=== PATIENT | male | born 1960 | race American Indian/Alaskan Native ===

== ENCOUNTER 2019-02-01 05:45 | Day surgery (SDC) | payer BC ==
--- NOTE | 2019-01-19 10:46 | NUR ---
PATIENT HERE TODAY FOR PREADMIT APPOINTMENT. HE IS ACCOMPANIED BY HIS LIFE PARTNER AMALIA. HE IS SCHEDULED TO HAVE A LEFT TOTAL HIP ARTHROPLASTY DONE ON 02/01/19. HE WILL BE ATTENDING A PHYSICAL THERAPY APPOINTMENT ON 01/22/19 AND WOULD LIKE PHYSICAL THERAPY SET UP WITH [facility]. HE HAS 5 STEPS INTO THE HOME AND 3 STEPS INSIDE THE HOME. THEY HAVE A WALK IN SHOWER WITH HAND HELD SHOWER HEAD. THERE IS A SHOWER BENCH AT THIS TIME AND THEY WILL LOOK INTO A WALKER. AMALIA WILL BE HERE TO TRANSPORT THE PATIENT HOME AND TO APPOINTMENTS NEEDED. THIS INFORMATION WILL BE SENT TO DR SMITH OFFICE AND CASE MANAGEMENT FOR FURTHER FOLLOW UP.
[~2019-02-01] VITALS: Ht 157.5 cm; Wt 74.8 kg
[~2019-02-01 05:45] MED LIST: ALLOPURINOL100 MG PO; DICLOFENAC SODI75 MG PO; LIPITOR40 MG PO; LISINOPRIL40 MG PO
--- NOTE | 2019-02-01 09:16 | NUR ---
02/01/19 0916 [address] SN 0902- PT ARRIVES TO PACU. PT IS AWAKE AND ABLE TO ANSWER QUESTIONS. PT VERBALIZES NO PAIN, NAUSEA, OR DIZZINESS. PT IS ON 6 LITERS VIA MASK AND OXYGEN SAT IS HIGH 90'S. RESPIRATIONS ARE EVEN AND NON LABORED. PT HAS ON-Q PUMP TO LEFT HIP GOING AT 2 MLS PER HOUR WITH THE CLAMP REMOVED. SULEIMAN DRESSING IN PLACE WITH GREEN LIGHT FLASHING. 0907- OXYGEN REMOVES. OXYGEN SATS MID TO HIGH 90'S ON ROOM AIR. PT REPORTS NO PAIN, NAUSEA, OR DIZZINESS. REPIRATIONS EVEN AND NON LABORED. 0913- PT SIPPING ON ICE WATER, TOLERATING WELL. PT INTERMITTENTLY COUGHING AND DEEP BREATHING.
--- NOTE | 2019-02-01 10:10 | NUR ---
PT ARRIVED FROM PACU VIA BED. PT AWAKE, ALERT AND ORIENTED. DENIES PAIN, NAUSEA, OR OTHER CONCERNS. SATTING 95% ON RA. VS OBTAINED. PT REPORTS SENSATION ALL THE WAY TO TOES, GOOD MOVEMENT OF BILATERAL EXTREMITIES, GOOD PULSES AND CAP REFILL 3 SEC, PINK AND WARM. SULEIMAN DRESSING TO LEFT HIP, FLASHING GREEN, NO BLEEDING OR DRAINAGE NOTED. CRYO CUFF IN PLACE. BILATERAL TEDS, SCD'S, AND HEEL PROTECTORS ON. LEFT FA IV FLUSHES EASILY. PT TAKING SIPS OF WATER, JASMYNE WELL. CLEAR LIQUIDS ORDERED. CALL LIGHT WITHIN REACH.
--- NOTE | 2019-02-01 11:20 | NUR ---
PT LYING IN BED WATCHING TV. IV SL. CONT TO SAT 95% ON RA. EDUCATED ON USE OF I.S. PT REPORTING 3/10 PAIN IN LEFT GROIN, REFUSED PAIN MEDICATION AT THIS TIME. DRESSING CDI. CALL LIGHT WITHIN REACH.
--- NOTE | 2019-02-01 12:21 | NUR ---
PT HAD MOST OF CLEAR LIQUID TRAY, JASMYNE WELL, DENIES NAUSEA. ORDERED LUNCH. REPORTS LEFT GROIN "DULL ACHE" UNCHANGED FROM PREVIOUS ASSESSMENT. DRESSING CDI. CALL LIGHT WITHIN REACH.
--- NOTE | 2019-02-01 12:58 | OR ---
[facility] [address] [place], [place] [address] Signed DATE OF OPERATION: 02/01/2019 SURGEON: Ponce Small MD PREOPERATIVE DIAGNOSIS: Degenerative joint disease, left hip. POSTOPERATIVE DIAGNOSIS: Degenerative joint disease, left hip. PROCEDURE PERFORMED: Left total hip arthroplasty. SUPERVISOR CRACK OFF: Christina Rodriguez PA-C. Christina was present and critical for all portions of the procedure. ANESTHESIA: Spinal. BLOOD LOSS: 150 mL. IMPLANTS: Kalee Accolate 2 size 5 with a 56 mm cup, +0 head. BRIEF HISTORY: Landen is a 58-year-old gentleman with progressive worsening of his arthritis in both hips. The left was worse than the right. He failed nonoperative treatment and wished to proceed with operative. Risks, benefits, and alternatives of surgery were discussed with him at length. He understands and wished to proceed. DESCRIPTION OF PROCEDURE: Once consent was obtained, he was taken to the operating room. After adequate anesthesia, he was placed supine on the operating table. All downside pressure points were well padded. Both legs were prepped from the toes to the umbilicus. He was then draped in a standard fashion. The anterolateral Mon-Ness incision was then marked out from the anterior aspect of the greater trochanter to spot 2 cm below, more posterior to the ASIS. This was about 8-9 cm long. The skin was incised longitudinally Electronically Signed By: PONCE SMALL MD 02/01/19 1258 PATIENT NAME: LANDEN ISIDRO OPERATIVE REPORT DATE OF : 64 REPORT #: [id number] PHYSICIAN: PONCE SMALL MD PCP: SHAILA MARTINEZ REPORT IS CONFIDENTIAL AND NOT TO BE RELEASED WITHOUT AUTHORIZATION [facility] [address] [place], [place] [address] Signed and carried through the subcutaneous tissue. The fascia was then identified and skin flaps were developed. The interval between the TFL and the gluteus medius was then incised longitudinally. The intermuscular interval was then developed using blunt dissection with fingers. Two retractors were then placed around the femoral neck, one inferior and one superiorly. Dissection was then taken anteriorly underneath the attachment of the rectus. The rectus was partially elevated. The capsule was then split in a H-fashion and elevated anteriorly and posteriorly. The calcified acetabular rim was removed. Two femoral neck cuts were made, one neck cut and one fingerbreadth above the lesser trochanter. This was done after releasing the inferior and the inferior posterior capsule. The 2nd was then made 1 cm above this. The intervening napkin ring was removed. The corkscrew was then placed in the femoral head and the femoral head was removed with ease. The periacetabular soft tissue was removed. The acetabulum was reamed up to a 55 and a 56 cup was placed. The cup was quite stable at the end of the procedure and the standard offset liner was impacted in position. Attention was then turned to the proximal femur. The superior releases were performed down to the piriformis posteriorly. This allowed the femur to be accessed quite easily. The femur was then opened using cookie cutter followed by the small awl and then sequentially broached up to a 5. The 5 was left in position. Radiographs showed the 5 to be in good size and good position. The acetabulum was in excellent position. The trial was removed and the final stem was impacted until it was well-seated, same level as the broach. A +0 head was then placed and the hip was reduced. Leg lengths were found to be equal. He had 110 degrees of flexion with 30 and 40 of internal and external rotation. The wound was copiously with antibiotic solution. An On-Q pain pump was placed intracapsular and it was closed using #1 StrataFix and #0 StrataFix and Dermabond mesh for the skin. A SULEIMAN dressing was placed and he was awakened and taken to the recovery room in satisfactory condition. All sponge, needle, and instrument counts were correct. Ponce Small MD [id number]/[id number] /[id number] Copies: Electronically Signed By: PONCE SMALL MD 02/01/19 1258 PATIENT NAME: LANDEN ISIDRO OPERATIVE REPORT DATE OF : 64 REPORT #: [id number] PHYSICIAN: PONCE SMALL MD PCP: SHAILA MARTINEZ REPORT IS CONFIDENTIAL AND NOT TO BE RELEASED WITHOUT AUTHORIZATION [facility] [address] [place] [id number] Signed ~ Electronically Signed By: PONCE SMALL MD 02/01/19 1258 PATIENT NAME: LANDEN ISIDRO OPERATIVE REPORT DATE OF : 64 REPORT #: [id number] PHYSICIAN: PONCE SAMLL MD PCP: SHAILA MARTINEZ REPORT IS CONFIDENTIAL AND NOT TO BE RELEASED WITHOUT AUTHORIZATION
--- NOTE | 2019-02-01 13:34 | NUR ---
PATIENT IN BED EATING LUNCH. CRYO FILLED. FAMILY IN ROOM. CALL LIGHT IN REACH. NO FURTHER NEEDS AT THIS TIME.
--- NOTE | 2019-02-01 13:50 | NUR ---
PT VOIDED INTO URINAL WITHOUT DIFFICULTY.
--- NOTE | 2019-02-01 14:14 | NUR ---
PT ATE BURGER AND CHIPS FOR LUNCH, JASMYNE WELL. DENIES PAIN AT THIS TIME. GOOD SENSATION AND MOVEMENT OF BILATERAL LE. DRESSING REMAINS CDI. CALL LIGHT WITHIN REACH.
--- NOTE | 2019-02-01 16:18 | NUR ---
PT AMB HALLWAY WITH P.T. 1 PA WITH WALKER, WHEELCHAIR FOLLOW. JASMYNE WELL.
--- NOTE | 2019-02-01 17:30 | NUR ---
PT SITTING UP IN BED EATING DINNER. DENIES PAIN OR OTHER CONCERNS. DRESSING CDI. VOIDING WITHOUT DIFFICULTIES. CALL LIGHT WITHIN REACH.
--- NOTE | 2019-02-01 18:22 | NUR ---
PATIENT SITTING UP IN BED WATCHING TV, FAMILY IN ROOM. CRYO FILLED. CALL LIGHT IN REACH. NO FURTHER NEEDS AT THIS TIME.
--- NOTE | 2019-02-01 18:39 | NUR ---
PT DOING WELL THIS SHIFT. ARRIVED FROM PACU 1005. PAIN WELL CONTROLLED. DRESSING CDI. EATING AND DRINKING WELL. SATTING 95% ON RA. AMB WELL WITH P.T.
--- NOTE | 2019-02-01 20:05 | NUR ---
RECEIVED REPORT FROM DAY SHIFT RN. PATIENT IS RESTING IN BED WATCHING TV. PATIENT DENIES ANY PAIN. NO NEEDS NOTED. CALL LIGHT IN REACH.
--- NOTE | 2019-02-01 20:45 | NUR ---
PATIENT ASSESMENT COMPLETED. PATIENT IS RESTING IN BED WATCHING TV. PATIENT RATES PAIN AT A 7/10 IN HIS LEFT HIP. PATIENT GIVEN PRN TORADOL PER ORDER. PATIENT GIVEN EVENING MEDICATIONS PER ORDER. PATIENT HAS SCDS, TEDHOSE, AND HEEL PROTECTORS IN PLACE ON BILAT LOW EXT. PATIENT HAS CRYO IN PLACE. PATIENT IS ON RA AND CPOX IS IN USE. PATIENT HAS ON-Q INFUSING PER ORDER. PATIENT HAS SULEIMAN IN PLACE AND IT IS FLASHING ORANGE. PATIENTS DRESSING OBSERVED AND SULEIMAN RESTARTED AND IS NOW FLASHING GREEN. PATIENT IS AAOX3. PATIENT DENIES ANY FURTHER NEEDS CALL LIGHT IN REACH.
--- NOTE | 2019-02-01 22:10 | NUR ---
PATIENTS VITALS TAKEN AND RECORDED. PATIENTS INTAKE AND OUPUT RECORDED BY ARTIFICIAL BREEDING RANCH SUPERVISOR. CRYO REFILLED BY ARTIFICIAL BREEDING RANCH SUPERVISOR AND APPLIED TO LEFT HIP. PATIENTS DRESSING IS C/D/I AND NO DRAINAGE NOTED. PATIENT RATES PAIN AT A 6/10. PATIENT GIVEN PRN PAIN MEDICATION PER ORDER. PATIENT GIVEN SCHEDULED MEDICATIONS PER ORDER. NO FURTHER NEEDS NOTED. CALL LIGHT IN REACH.
--- NOTE | 2019-02-01 23:49 | NUR ---
PATIENT IS RESTING IN BED WITH EYES CLOSED. CPOX WNL. CALL LIGHT WITHIN REACH.
--- NOTE | 2019-02-02 02:20 | NUR ---
PATIENTS VITALS TAKEN AND RECORDED. PATIENT RATES PAIN AT A 5/10. PATIENT GIVEN PRN PAIN MEDICATION PER ORDER. PATIENTS SULEIMAN DRESSING REINFORCED W/OPSITE. SULEIMAN IS ONW FLASHING GREEN. PATIENT GIVEN FRESH ICE WATER. NO FURTHER NEEDS NOTED. [facility].
--- NOTE | 2019-02-02 03:33 | NUR ---
PATIENT IS RESTING IN BED WITH EYES CLOSED. CPOX WNL. CALL LIGHT IN REACH.
--- NOTE | 2019-02-02 04:46 | NUR ---
PATIENT RESTED WELL THROUGHOUT THE SHIFT. PATIENT IS ON A REGULAR DIET AND TOLERATING IT WELL, NO COMPLAINTS OF NAUSEA. PATIENT IS ON RA. PATIENT HAS HEEL PROTECTORS, SCDS, AND TEDHOSE ON BILAT LOW EXT. PATIENT HAS ON-Q IN PLACE. PATIENT HAS ON-Q IN PLACE, REINFORCED WITH OPSITE, AND LIGHT FLASHING GREEN. PATIENT IS SL AND IV FLUSHES WELL. PATIENT HAS NOT BEEN OUT OF BED THIS SHIFT. PATIENT DRESSING IS C/D/O, NO DRAINAGE NOTED. PATIENT IS AAOX3 AND USES CALL LIGHT APPROPRIATELY. PATIENT RECEIVED PRN MEDICATION X2.
--- NOTE | 2019-02-02 06:23 | NUR ---
PATIENTS VITALS TAKEN AND RECORDED. INTAKE AND OUTPUT RECORDED. PATIENTS CRYO REFILLED AND APPLIED TO LEFT HIP. PATIENT RATES PAIN AT A 4/10. PATIENTS SCHEDULED MEDICATION GIVEN PER ORDER. PATIENT DENIES ANY FURTHER NEEDS. CALL LIGHT IN REACH.
--- NOTE | 2019-02-02 07:01 | NUR ---
PATIENT GIVEN PRN TORADOL FOR 3/10 PAIN IN HIS RIGHT HIP. PATIENT DENIES ANY FURTHER NEDDS. CALL LIGHT IN REACH.
--- NOTE | 2019-02-02 08:15 | NUR ---
PT SITTING UP IN BED AWAKE WAITING FOR BREAKFAST. DENIES PAIN OR NAUSEA THIS AM. LEFT HIP DRESSING REMAINS CDI. FAINA, SCD'S, AND HEEL PROTECTORS ON BILATERALLY. CRYO CUFF TO LEFT HIP. IV SL, DRESSING CDI, FLUSHES EASILY. PT VOIDING WITHOUT DIFFICULTY USING URINAL. CALL LIGHT WITHIN REACH.
[2019-02-02] MEDS ORDERED: GABAPENTIN300 MG PO (08:24)
--- NOTE | 2019-02-02 08:56 | NUR ---
PATIENT SITTING UP IN BED EATING BREAKFAST. CALL LIGHT IN REACH. NO FURTHER NEEDS AT THIS TIME.
--- NOTE | 2019-02-02 09:31 | NUR ---
PATIENT IN BED WATCHING TV. CRYO FILLED. SHOWER REFUSED. CALL LIGHT IN REACH. NO FURTHER NEEDS AT THIS TIME.
--- NOTE | 2019-02-02 10:13 | NUR ---
PT SITTING UP IN RECLINER AFTER WALKING WITH P.T. RATES LEFT HIP PAIN 02/26. MEDICATED WITH 10MG PO OXY. PERSONAL ITEMS AND CALL LIGHT WITHIN REACH.
[2019-02-02] MEDS ORDERED: IRON325 M1 PO (11:26)
[2019-02-02] MEDS ORDERED: VITAMIN C500 M1 PO (11:26)
[2019-02-02] MEDS ORDERED: TYLENOL325 MG PO (11:27)
--- NOTE | 2019-02-02 11:28 | NUR ---
MED REC COMPLETE
--- NOTE | 2019-02-02 13:48 | NUR ---
PT MNOAE SMALLWOOD WITH Angela 1PA WITH JASMYNE VALADEZ
--- NOTE | 2019-02-02 14:17 | NUR ---
PATIENT IN BED WATCHING TV. CRYO FILLED. FRESH WATER GIVEN. CALL LIGHT IN REACH. NO FURTHER NEEDS AT THIS TIME.
[2019-02-02] MEDS ORDERED: OXYCODONE HCL5 MG PO (14:57)
[2019-02-02] MEDS ORDERED: NEURONTIN300 MG PO (14:58)
--- NOTE | 2019-02-02 15:04 | NUR ---
PT SITTING UP IN BED. COMPLETED SECOND ROUND OF P.T. WOULD LIKE TO GO HOME. DR. SMITH NOTIFIED AND RECIEVED DISCHARGE ORDER.
== END 2019-02-02 15:49 | disposition home or self-care (01) ==
LOC: DS 05:45 → OPS 06:45 → EDSTATUS 06:45 → MS 10:15 → DS 02-02 15:49
PROVIDERS: Specialist
PROC: 0SRB0JZ Replacement of Left Hip Joint with Synthetic Substitute, Open Approach (ICD-10-PCS; principal; 2019-02-01 06:45)
DX: M16.12 Unilateral primary osteoarthritis, left hip (principal); Z79.899 Other long term (current) drug therapy
CPT/HCPCS: 01214; 64447; 72170; 73501; 76942; 94762; 97110; 97116; 97162; 99406; C1776; J0131; J0690; J1100; J1200; J1885; J2250; J2370; J2704; J2795; J3010; J7120

== ENCOUNTER 2024-03-18 05:55 | Day surgery (SDC) | payer OTHER ==
[2024-03-10 11:23] VITALS: BP 143/92
[~2024-03-18] VITALS: Ht 157.5 cm; Wt 81.8 kg
[~2024-03-18 05:55] MED LIST changes: +DULOXETINE HCL30 MG PO; +GABAPENTIN300 MG PO; +IRON325 M1 PO; +METFORMIN HCL500 MG PO; +MIDAZOLAM HCL 5 MG/5 ML VIAL IV PRN; +NEURONTIN300 MG PO; +OXYCODONE HCL5 MG PO; +PREGABALIN75 MG PO; +PRILOSEC OTC20 MG PO; +TYLENOL325 MG PO; +VITAMIN C500 M1 PO; +VITAMIN D21250 MCG PO; +ZESTRIL20 MG PO; +fentaNYL citrate 100 MCG/2 ML VIAL IV PRN
[2024-03-18 06:14] VITALS: BP 135/84
[2024-03-18] MEDS ORDERED: propofoL 200 MG/20 ML VIAL ONE (06:43)
[2024-03-18] MEDS ORDERED: LIDOCAINE HCL 2% 5 ML SDV ONE (06:43)
[2024-03-18] MEDS ORDERED: LACTATED RINGER'S 1,000 ML IV SCH (07:00)
[2024-03-18] MEDS ORDERED: LIDOCAINE HCL 1% 5 ML SDV INJ ONE (07:00)
[2024-03-18] MEDS ORDERED: IBLOOD GLUCOSE TEST STRIP 1 EA TEST VI PRN ×2 (07:00→08:00)
[2024-03-18] MEDS ORDERED: CEFAZOLIN SODIUM 2 GM/20 ML SYR IV ONE (07:15)
[2024-03-18] MEDS ORDERED: LACTATED RINGER'S 1,000 ML IV ONE (07:32)
[2024-03-18] MEDS ORDERED: GLUCAGON,HUMAN RECOMBINANT 1 MG/ML VIAL ONE (07:34)
--- NOTE | 2024-03-18 07:54 | NUR ---
03/18/24 0754 Constance Powell 0748-PATIENT ARRIVED TO PACU ON 6L MASK RR EVEN. PATIENT AWAKE HOB ELEVATED. SR HR 80-90'S. IVF INFUSING. ABDOMEN SOFT. 0754-PATIENT AWAKE DENIES NAUSEA REPORTS "SORE THROAT" 6L MASK RR EVEN 98%
[2024-03-18] MEDS ORDERED: ondansetron HCL 4 MG/2 ML VIAL IV PRN (08:00)
[2024-03-18] MEDS ORDERED: NALOXONE HCL 0.4 MG SYR IV PRN (08:00)
[2024-03-18 08:19] VITALS: BP 139/74
[2024-03-18] MEDS ORDERED: SUCCINYLCHOLINE IN 0.9% NACL 200 MG/10 ML SYRINGE ONE (08:19)
--- NOTE | 2024-03-18 08:22 | NUR ---
JIN 0820: PT IS BACK TO DS FROM PACU. HE IS AWAKE AND ALERT. CALL LIGHT WITHIN REACH. HE IS TOLERATING WATER. HE WOULD LIKE BLACK COFFEE. HE WOULD LIKE SALTINES AND APPLE SAUCE. DC CRITERIA REVIEWED WITH PT.
[2024-03-18 09:20] VITALS: BP 157/85
--- NOTE | 2024-03-18 09:20 | NUR ---
PT DISCHARGE INSTRUCTIONS GIVEN ON MEDICATION, FOLLOW-UP, WHEN TO CONTACT THE MD, ACTIVITY, AND DIET. PT VERBALIZED UNDERSTANDING. PT LEFT FOR HOME WITH ALL BELONGINGS AND VIA WHEELCHAIR.
--- NOTE | 2024-03-18 09:30 | NUR ---
JIN 0904: PT IS ASSISTED UP OOB WITH STANDBY ASSIST TO USE THE RESTROOM. HE IS ABLE TO AMBUALTE TO AND FROM BATHROOM INDEPENDENTLY. HE IS TOLERATING WATER, COFFEE, APPLE SAUCE, AND SALTINES WITHOUT ISSUES. HE INDICATES THAT HE WOULD LIKE TO GO HOME. HE IS EDUCATED ON HOW TO BEST DRESS HIMSELF AND TO OPEN HIS CURTAIN WHEN HE IS READY.
--- NOTE | 2024-03-18 09:35 | OR ---
[facility] [address] [place], [place] [address] Signed DATE OF OPERATION: 03/18/2024 SURGEON: Susana Newsome MD PREOPERATIVE DIAGNOSIS: Duodenal polyp. POSTOPERATIVE DIAGNOSIS: Duodenal polyp. PROCEDURE: Esophagogastroduodenoscopy with hot biopsy. ESTIMATED BLOOD LOSS: None. INDICATIONS: Landen is a 63-year-old gentleman, who came on 01/08/2024 for both upper and lower endoscopy. He was having anemia along with acid reflux and guaiac-positive stool. His sister is known of colon cancer in her late 50s maybe early 60s. Landen has been a long-time smoker and headed over to our [facility] for his laparoscopic nephrectomy for his renal cell carcinoma. When we did his upper endoscopy, he had a moderate-sized hiatal hernia associated with acid reflux. CLOtest was negative for H pylori. He also had the semi-lunar polyp in the outer curve of the duodenum just opposite to the ampulla of Vater. We had taken a couple of biopsies of this polyp. It came back adenomatous tissue. We told him we should go back in 6-8 weeks after his kidney surgery and remove the rest of that polyp. He also has moderate internal and external hemorrhoids. He had moderate sigmoid diverticulosis. We also took out seven polyps from the colon, six of those polyps were adenomatous and one was hyperplastic. Two of the polyps were 12 mm in diameter. We did leave a tattoo back at 90 cm. He returns now for the repeat upper endoscopy. He is aware of upper endoscopy. There is risk including, but not limited to gas bloating, crampy abdominal pain, bleeding, perforation requiring surgery, and missed diagnosis. We also reviewed the need once again for monitored anesthesia care given his extensive history of smoking, his very round full face and heavy neck. Once again, that proved to be a correa decision as we had actually intubated him to maintain his airway before we could start the procedure. He had expressed understanding and wished to proceed. DESCRIPTION OF PROCEDURE: Landne was taken into our endoscopy suite and placed in the supine semi-recumbent Electronically Signed By: SUSANA NEWSOME MD 03/18/24 0935 PATIENT NAME: LANDEN ISIDRO OPERATIVE REPORT DATE OF : 64 REPORT #: [id number] PHYSICIAN: SUSANA NEWSOME MD PCP: SHASHA LICEA REPORT IS CONFIDENTIAL AND NOT TO BE RELEASED WITHOUT AUTHORIZATION [facility] [address] [place], [place] [address] Signed position. He was initially given some IV propofol. He does have a large tongue and a full face and a heavy neck. We had placed an oral airway and eventually we had to go ahead and intubate him to maintain his airway for the procedure. We had given him some Ancef because of his hip replacement. After this, the adult gastroscope was introduced and advanced under direct visualization of camera. Again, he has some disruption around the Z-line and a moderate-sized hiatal hernia. Once out into the duodenum, we could see the semi-lunar polypoid lesion opposite to the ampulla of Vater. We started and worked our way circumferentially with the hot biopsy forceps. Thus, the entire lesion was cauterized. Several biopsies went off to the lab for additional pathologic review. After this, the scope was withdrawn. We did retroflex the scope and again he has a moderate-sized hiatal hernia. After this, the gas was suctioned out, the gastroscope removed. Landen tolerated the procedure quite well. RECOMMENDATIONS: I will see Landen back in my office in 7 to 14 days to review his results. He will always need monitored anesthesia care for his endoscopies. He really needs to consider having an evaluation and some recommendations from our [facility]. He probably should be on a shorter interval to look back in the duodenum as well as his colon. Susana Newsome MD ALB/MODL /[id number] cc: Patient Chart Shasha Newsome MD Copies: SUSANA NEWSOME MD ~ Electronically Signed By: SUSANA NEWSOME MD 03/18/24 0935 PATIENT NAME: LANDEN ISIDRO OPERATIVE REPORT DATE OF : 64 REPORT #: [id number] PHYSICIAN: SUSANA NEWSOME MD PCP: SHASHA LICEA REPORT IS CONFIDENTIAL AND NOT TO BE RELEASED WITHOUT AUTHORIZATION
--- NOTE | 2024-03-23 14:07 | PATH ---
[facility] [address] [place], [place] [address] Signed SPECIMEN(S): A DUODENUM POLYP SPECIMEN SOURCE: A. DUODENUM POLYP CLINICAL HISTORY: EGD. Anemia; acid reflux; guaiac positive stool; family history of colon cancer FINAL PATHOLOGIC DIAGNOSIS: Duodenal polyp, biopsies: - Adenomatous polyp, negative for high-grade dysplasia or malignancy. AMB MICROSCOPIC EXAMINATION: Histologic sections of all submitted blocks are examined by light microscopy. These findings, together with the gross examination, support the pathologic diagnosis. GROSS DESCRIPTION: The specimen, labeled and designated "El, 1" and designated on the requisition "duodenum polypectomy," is received in formalin and consists of five foy soft tissue fragments, ranging from 0.2-0.3 cm. Entirely submitted in (A1). AC (under the direct supervision of a pathologist) The Gross Description was prepared using a voice recognition system. The report was reviewed for accuracy; however, sound-alike word errors, addition and/or deletions may occur. If there is any question about this report, please contact Client Services. ADDITIONAL NOTES: Immunohistochemical and/or in situ hybridization studies if performed in this case included appropriate positive controls that reacted as expected. This test was developed and its performance characteristics determined by [employer]. It has not been cleared or approved by the U.S. Food and Drug Administration. The FDA has determined that such clearance or approval is not necessary. This test is used for clinical purposes. It should not be regarded as investigational or for research. [employer] is certified under the Clinical Laboratory Improvement Amendments of 1988 (CLIA) as qualified to perform high complexity clinical laboratory testing. PATIENT NAME: RASHID ISIDRO PATHOLOGY DATE OF : 64 REPORT #: [id number] PHYSICIAN: EWA AHMADI PCP: KISHA LICEA REPORT IS CONFIDENTIAL AND NOT TO BE RELEASED WITHOUT AUTHORIZATION [facility] [address] [place], [place] [address] Signed PERFORMING LABORATORY: Technical component was performed by [facility] [employer], [address] [place] [address] (CLIA# [id number]). Professional interpretation was performed by [facility] - [facility] [address] [place] [id number] [id number] Diagnostician: Kassidy Aguilar MD Pathologist Electronically Signed 03/23/2024 Copies: ~ PATIENT NAME: RASHID ISIDRO PATHOLOGY DATE OF : 64 REPORT #: [id number] PHYSICIAN: EWA AHMADI PCP: KISHA LICEA REPORT IS CONFIDENTIAL AND NOT TO BE RELEASED WITHOUT AUTHORIZATION
== END 2024-03-18 09:20 | disposition home or self-care (01) ==
LOC: OPS 05:55 → DS 05:55 → OPS 07:30
PROVIDERS: ATTEND Colon & Rectal Surgery
PROC: 0DB98ZX Excision of Duodenum, Via Natural or Artificial Opening Endoscopic, Diagnostic (ICD-10-PCS; principal; 2024-03-18 07:30)
DX: D13.2 Benign neoplasm of duodenum (principal); K44.9 Diaphragmatic hernia without obstruction or gangrene; K21.9 Gastro-esophageal reflux disease without esophagitis; K57.30 Diverticulosis of large intestine without perforation or abscess without bleeding; K64.8 Other hemorrhoids; K64.4 Residual hemorrhoidal skin tags; I10 Essential (primary) hypertension; E78.5 Hyperlipidemia, unspecified; F17.200 Nicotine dependence, unspecified, uncomplicated; Z80.0 Family history of malignant neoplasm of digestive organs; Z79.899 Other long term (current) drug therapy
CPT/HCPCS: 00731; 88305; J0330; J0690; J1610; J2001; J2704; J7121